=== PATIENT | female | born 1945 | race African-American/Black ===

== ENCOUNTER 2022-03-10 06:46 | Inpatient (IN) | payer MEDICARE, MEDICAID ==
[~2022-03-10] VITALS: Ht 170.2 cm; Wt 55.5 kg
[2022-03-10] MEDS ORDERED: IPRATROPIUM BROMIDE (0.02%) 0.5MG/2.5ML NEB HHN STA (06:53)
[2022-03-10] MEDS ORDERED: MAGNESIUM 2 G PREMIX 50 ML IV STA (06:53)
[2022-03-10] MEDS ORDERED: METHYLPREDNISOLONE SOD SUCC 125 MG/2 ML VIAL IV STA (06:53)
[2022-03-10] MEDS ORDERED: ALBUTEROL (0.083%) 2.5MG/3ML NEB HHN STA (06:53)
[2022-03-10 09:03] LABS: BG BASE EXCESS -8.5 mmol/L (-2.0-2.0); BG CARBOXYHEMOGLOBIN 0.9 % (0.5-1.5); BG DEOXYHEMOGLOBIN 0.8 % (0.0-5.0); BG FRACTION INSPIRED OXYGEN 100; BG HCO3 ACT 17.3 mmol/L (22.0-26.0); BG METHEMOGLOBIN 0.3 % (0.0-1.5); BG OXYGEN SATURATION 99.2 % (92.0-98.5); BG PCO2 36.7 mmHg (35.0-45.0); BG PO2 337.2 mmHg (75.0-100.0); BG SAMPLE SITE RIGHT BRACHIAL; BG TOTAL HEMOGLOBIN 12.6 g/dL (12.0-18.0); BG TOTAL RESPIRATORY RATE 33 b/min; BG VENT MODE MASK - BIPAP
[2022-03-10 09:08] LABS: BASOPHILS % 0.4 % (0.0-2.0); EOSINOPHILS % 0.3 % (0.0-5.0); HEMATOCRIT. 38.5 % (36.0-48.0); HEMOGLOBIN. 12.4 g/dL (12.0-16.0); LYMPHOCYTES % 9.2 % (20.0-50.0); MEAN CORPUSCULAR HEMOGLOBIN 30.2 pg (28.0-32.0); MEAN CORPUSCULAR VOLUME 93.6 fL (81.0-99.0); MEAN PLATELET VOLUME 10.6 fl (7.4-10.4); MONOCYTES % 3.8 % (2.0-8.0); NEUTROPHILS % 86.3 % (40.0-76.0); PLATELET 132 x1000/uL (130-400); RED BLOOD CELL COUNT 4.11 mill/uL (4.2-5.4); RED CELL DISTRIBUTION WIDTH 15.3 % (11.6-14.6)
[2022-03-10 09:15] LABS: CHLORIDE 104 mEq/L (98-107)
[2022-03-10] MEDS ORDERED: IPRATROPIUM/ALBUTEROL 0.5-3(2.5)MG/3ML NEB HHN PRN (09:30)
[2022-03-10] MEDS ORDERED: FUROSEMIDE 20MG/2ML VIAL IVP NR (10:00)
[2022-03-10 11:21] LABS: BG BASE EXCESS -3.8 mmol/L (-2.0-2.0); BG CARBOXYHEMOGLOBIN 1.1 % (0.5-1.5); BG DEOXYHEMOGLOBIN 0.8 % (0.0-5.0); BG FRACTION INSPIRED OXYGEN 50; BG HCO3 ACT 20.8 mmol/L (22.0-26.0); BG METHEMOGLOBIN 0.2 % (0.0-1.5); BG OXYGEN SATURATION 99.2 % (92.0-98.5); BG OXYHEMOGLOBIN 97.9 % (94.0-97.0); BG PCO2 36.4 mmHg (35.0-45.0); BG PH 7.375 (7.350-7.450); BG PO2 199.9 mmHg (75.0-100.0); BG SAMPLE SITE RIGHT BRACHIAL; BG TOTAL HEMOGLOBIN 13.4 g/dL (12.0-18.0); BG TOTAL RESPIRATORY RATE 20 b/min; BG VENT MODE MASK - BIPAP
[2022-03-10] MEDS ORDERED: IPRATROPIUM/ALBUTEROL 0.5-3(2.5)MG/3ML NEB HHN SCH (12:00)
[2022-03-10] MEDS ORDERED: ACETAMINOPHEN 325MG TABLET PO PRN ×2 (13:30)
[2022-03-10] MEDS ORDERED: IPRATROPIUM/ALBUTEROL 0.5-3(2.5)MG/3ML NEB NEB PRN (13:30)
[2022-03-10] MEDS ORDERED: GUAIFENESIN 200MG/10ML SUGAR FREE UDC PO PRN (13:30)
[2022-03-10] MEDS ORDERED: CLONIDINE 0.1MG TABLET PO PRN (13:30)
[2022-03-10] MEDS ORDERED: ONDANSETRON HCL 4MG/2ML INJ IV PRN (13:30)
[2022-03-10] MEDS ORDERED: MAGNESIUM/ALUMINUM HYDROXIDE/SIMETHICONE 30ML UDC PO PRN (13:30)
[2022-03-10] MEDS ORDERED: HYDROCODONE/ACETAMINOPHEN 5/325MG TABLET PO PRN (13:30)
[2022-03-10] MEDS ORDERED: NALOXONE HCL 0.4MG/ML VIAL IV PRN (14:00)
[2022-03-10 14:03] VITALS: BP 106/84
[2022-03-10] MEDS: METHYLPREDNISOLONE SOD SUCC 125 MG/2 ML VIAL IV SCH ×2 (14:21→21:06)
[2022-03-10] MEDS: ENOXAPARIN 40MG/0.4ML SYR SUBCUT SCH (14:22)
[2022-03-10] MEDS ORDERED: AZITHROMYCIN 500MG/250ML 250 ML IV ONE (15:00)
[2022-03-10] MEDS ORDERED: CEFTRIAXONE 1 G PREMIX 50 ML IV SCH (15:00)
[2022-03-10] MEDS ORDERED: DEXTROSE 50% WATER 50ML SYRINGE IV PRN ×2 (15:30→20:30)
[2022-03-10 16:00] VITALS: BP 110/69
[2022-03-10] MEDS ORDERED: AMLO-138 PO (16:18)
[2022-03-10] MEDS ORDERED: VILA40TA PO (16:18)
[2022-03-10] MEDS ORDERED: BISO10TA11 PO (16:18)
[2022-03-10] MEDS ORDERED: HYDR25TA PO (16:18)
[2022-03-10] MEDS: CEFTRIAXONE 1,000 MG in DEXTROSE 5% WATER 50 ML IV SCH (16:48)
[2022-03-10] MEDS: AZITHROMYCIN 500MG in DEXTROSE 5% WATER 250ML IV SCH (16:49)
[2022-03-10] MEDS ORDERED: BUDE6.9H INH (17:09)
[2022-03-10] MEDS ORDERED: ALBU4TAB6 MT (17:09)
[2022-03-10] MEDS: BLOOD SUGAR DIAGNOSTIC STRIP TEST SCH ×2 (17:33→20:18)
[2022-03-10 19:50] LABS: CREATINE KINASE MB FRACTION 3.2 ng/mL (0.5-3.6)
[2022-03-10 20:00] VITALS: BP 142/77
[2022-03-10] MEDS: IPRATROPIUM/ALBUTEROL 0.5-3(2.5)MG/3ML NEB NEB SCH (20:00)
[2022-03-10 20:51] LABS: CLARITY URINE CLEAR (CLEAR); COLOR URINE YELLOW (YELLOW); KETONES URINE 1+ (NEGATIVE); LEUKOCYTE ESTERASE URINE TRACE (NEGATIVE); NITRITE URINE NEGATIVE (NEGATIVE); OCCULT BLOOD URINE NEGATIVE (NEGATIVE); PH URINE 6.5 (4.5-8.0); PROTEIN URINE NEGATIVE (NEGATIVE); SPECIFIC GRAVITY URINE 1.011 (1.005-1.030)
[2022-03-11] VITALS: BP 157/75
[2022-03-11 04:00] VITALS: BP_SYST 124; BP_SYST 128; BP_DIAS 67; BP_DIAS 79
[2022-03-11] MEDS: BLOOD SUGAR DIAGNOSTIC STRIP TEST SCH ×4 (06:01→20:18)
[2022-03-11] MEDS: PANTOPRAZOLE 40MG DR TABLET PO SCH (06:09)
[2022-03-11] MEDS: INSULIN LISPRO 100 UNITS/ML SUBCUT SCH ×4 (06:15→20:18)
[2022-03-11 08:00] VITALS: BP 119/57
[2022-03-11] MEDS ORDERED: INFLUENZA VACCINE 05/PF 0.5 ML SYRINGE IM ONE (08:00)
[2022-03-11] MEDS ORDERED: PNEUMOCOCCAL 23-VAL P-SAC VAC 0.5 ML IM ONE (08:00)
[2022-03-11] MEDS: AMLODIPINE 10MG TABLET PO SCH (08:31)
[2022-03-11] MEDS: BISOPROLOL FUMARATE 5 MG TABLET PO SCH (08:31)
[2022-03-11] MEDS: HYDROCHLOROTHIAZIDE 25MG TABLET PO SCH (08:32)
[2022-03-11] MEDS: PREDNISONE 20MG TABLET PO SCH (08:32)
[2022-03-11] MEDS: BENAZEPRIL 10MG TABLET PO SCH (08:32)
[2022-03-11] MEDS ORDERED: VILAZODONE HYDROCHLORIDE 40 MG PO SCH (09:00)
[2022-03-11] MEDS ORDERED: BISOPROLOL FUMARATE 10 MG PO SCH (09:00)
[2022-03-11] MEDS ORDERED: MEDICATION NOT ON FORMULARY EA (Amlodipine Besylate/Benazepril (Amlodipine-Benazepril 10 PO SCH (09:00)
[2022-03-11] MEDS: IPRATROPIUM/ALBUTEROL 0.5-3(2.5)MG/3ML NEB NEB SCH ×3 (09:23→20:37)
[2022-03-11 10:18] VITALS: BP 145/71
[2022-03-11 12:25] LABS: CREATINE KINASE MB FRACTION 2.9 ng/mL (0.5-3.6)
[2022-03-11] MEDS: CEFTRIAXONE 1,000 MG in DEXTROSE 5% WATER 50 ML IV SCH (13:23)
[2022-03-11] MEDS: AZITHROMYCIN 500MG in DEXTROSE 5% WATER 250ML IV SCH (14:14)
[2022-03-11] MEDS: ENOXAPARIN 40MG/0.4ML SYR SUBCUT SCH (14:14)
[2022-03-11] MEDS: METRONIDAZOLE 500MG TABLET PO SCH ×2 (15:55→20:17)
[2022-03-11 20:00] VITALS: BP 122/48
[2022-03-11 20:43] LABS: HEMATOCRIT 33.4 % (36.0-48.0); HEMOGLOBIN 11.2 g/dL (12.0-16.0); MEAN CORPUSCULAR HEMOGLOBIN 30.5 pg (28.0-32.0); MEAN CORPUSCULAR VOLUME 91.1 fL (81.0-99.0); PLATELET 133 x1000/uL (130-400); RED BLOOD CELL COUNT 3.67 mill/uL (4.2-5.4); RED CELL DISTRIBUTION WIDTH 14.6 % (11.6-14.6)
[2022-03-11 20:51] LABS: CHLORIDE 109 mEq/L (98-107)
[2022-03-11] MEDS ORDERED: TRAZODONE HCL 50MG TABLET PO SCH (21:00)
[2022-03-12] VITALS: BP 124/80
[2022-03-12] MEDS: IPRATROPIUM/ALBUTEROL 0.5-3(2.5)MG/3ML NEB NEB SCH ×3 (01:38→15:06)
[2022-03-12 04:00] VITALS: BP 143/52
[2022-03-12] MEDS: PANTOPRAZOLE 40MG DR TABLET PO SCH (06:06)
[2022-03-12] MEDS: BLOOD SUGAR DIAGNOSTIC STRIP TEST SCH ×2 (06:12→11:40)
[2022-03-12] MEDS: INSULIN LISPRO 100 UNITS/ML SUBCUT SCH ×2 (06:12→12:10)
[2022-03-12 08:00] VITALS: BP 114/62
[2022-03-12] MEDS: BISOPROLOL FUMARATE 5 MG TABLET PO SCH (08:45)
[2022-03-12] MEDS: METRONIDAZOLE 500MG TABLET PO SCH (08:46)
[2022-03-12] MEDS: AMLODIPINE 10MG TABLET PO SCH (08:46)
[2022-03-12] MEDS: BENAZEPRIL 10MG TABLET PO SCH (08:46)
[2022-03-12] MEDS: PREDNISONE 20MG TABLET PO SCH (08:46)
[2022-03-12 11:41] LABS: BASOPHILS % 0.3 % (0.0-2.0); EOSINOPHILS % 0.2 % (0.0-5.0); HEMATOCRIT. 35.3 % (36.0-48.0); HEMOGLOBIN. 11.7 g/dL (12.0-16.0); LYMPHOCYTES % 26.6 % (20.0-50.0); MEAN CORPUSCULAR HEMOGLOBIN 30.4 pg (28.0-32.0); MEAN CORPUSCULAR VOLUME 91.8 fL (81.0-99.0); MEAN PLATELET VOLUME 10.3 fl (7.4-10.4); MONOCYTES % 5.9 % (2.0-8.0); PLATELET 129 x1000/uL (130-400); RED BLOOD CELL COUNT 3.85 mill/uL (4.2-5.4); RED CELL DISTRIBUTION WIDTH 14.9 % (11.6-14.6)
[2022-03-12] MEDS ORDERED: SENNOSIDES/DOCUSATE SOD 8.6/50MG TABLET PO PRN (12:15)
[2022-03-12] MEDS ORDERED: POLYETHYLENE GLYCOL 3350 (17GM) 1 DOSE PACK PO NR (12:15)
[2022-03-12] MEDS ORDERED: GUAIFENESIN 200MG/10ML SUGAR FREE UDC PO SCH (12:30)
[2022-03-12] MEDS: ENOXAPARIN 40MG/0.4ML SYR SUBCUT SCH (13:11)
[2022-03-12] MEDS: HYDROCHLOROTHIAZIDE 25MG TABLET PO SCH (13:11)
[2022-03-12] MEDS: CEFTRIAXONE 1,000 MG in DEXTROSE 5% WATER 50 ML IV SCH (13:11)
[2022-03-12] MEDS: AZITHROMYCIN 500MG in DEXTROSE 5% WATER 250ML IV SCH ×2 (13:12→13:40)
[2022-03-12 14:00] VITALS: BP 140/65
[2022-03-12] MEDS ORDERED: AZITHROMYCIN 500 MG TABLET PO SCH (14:00)
[2022-03-12 14:35] LABS: CHLORIDE 109 mEq/L (98-107)
[2022-03-12 14:41] LABS: PHOSPHORUS 2.5 mg/dL (2.5-4.9)
[2022-03-12] MEDS ORDERED: POTASSIUM CHLORIDE 20MEQ TABLET SR PO NR (15:30)
[2022-03-12] MEDS ORDERED: METR-167 PO ×3 (15:42→16:30)
[2022-03-12] MEDS ORDERED: AZIT250T12 PO ×3 (15:42→16:30)
[2022-03-12] MEDS ORDERED: P20 PO ×3 (15:42→16:30)
[2022-03-12] MEDS ORDERED: POLY119P2 MT ×3 (15:44→16:30)
[2022-03-12 16:39] VITALS: BP 120/70
[2022-03-12 17:53] LABS: PROTHROMBIN TIME 11.2 sec (9.6-11.0)
[2022-03-12 18:21] LABS: HEPATITIS B SURFACE ANTIGEN NEGATIVE
== END 2022-03-12 17:30 | disposition home or self-care (01) | DRG 189 ==
LOC: ER 07:04 → 7EST 12:25 → EDBEDREQ 12:31 → EDBEDREQTM 12:31 → EDBEDREQSVC 12:31 → SUPCPDRO 12:52 → ENRESERV 13:07
PROVIDERS: ADMIT Internal Medicine; ATTEND Internal Medicine
PROC: 5A09357 Assistance with Respiratory Ventilation, Less than 24 Consecutive Hours, Continuous Positive Airway Pressure (ICD-10-PCS; principal; 2022-03-11)
DX: J96.01 Acute respiratory failure with hypoxia (principal); J44.1 Chronic obstructive pulmonary disease with (acute) exacerbation; E87.20 Acidosis, unspecified; J84.9 Interstitial pulmonary disease, unspecified; A59.00 Urogenital trichomoniasis, unspecified; A59.01 Trichomonal vulvovaginitis; R73.03 Prediabetes; E87.70 Fluid overload, unspecified; Z20.822 Contact with and (suspected) exposure to COVID-19; E78.5 Hyperlipidemia, unspecified; F32.A Depression, unspecified; K58.0 Irritable bowel syndrome with diarrhea; F17.210 Nicotine dependence, cigarettes, uncomplicated; I10 Essential (primary) hypertension; K80.20 Calculus of gallbladder without cholecystitis without obstruction; Z79.51 Long term (current) use of inhaled steroids; Z79.899 Other long term (current) drug therapy; Z85.72 Personal history of non-Hodgkin lymphomas
CPT/HCPCS: 36415; 36600; 71045; 76700; 76775; 80048; 80053; 80061; 81003; 82375; 82550; 82553; 82805; 82962; 83036; 83735; 83880; 84100; 84145; 84484; 85025; 85027; 86705; 86709; 86803; 87340; 87426; 87804; 90686; 93005; 93306; 94660; 99291; J0456; J0696; J1650; J1940; J2930; J3475; J7060; J7512

== ENCOUNTER 2022-05-14 16:08 | Inpatient (IN) | payer MEDICARE, MEDICAID ==
[~2022-05-14] VITALS: Ht 157.5 cm; Wt 54.4 kg
[~2022-05-14 16:08] MED LIST: ALBU4TAB6 MT; AMLO-138 PO; AZIT250T12 PO; BISO10TA11 PO; BUDE6.9H INH; HYDR25TA PO; METR-167 PO; P20 PO; POLY119P2 MT; VILA40TA PO
[2022-05-14] MEDS ORDERED: IPRATROPIUM BROMIDE (0.02%) 0.5MG/2.5ML NEB HHN STA (16:41)
[2022-05-14] MEDS ORDERED: METHYLPREDNISOLONE SOD SUCC 125 MG/2 ML VIAL IV STA (16:41)
[2022-05-14] MEDS ORDERED: ALBUTEROL (0.083%) 2.5MG/3ML NEB HHN STA (16:41)
[2022-05-14 17:20] LABS: BASOPHILS % 0.7 % (0.0-2.0); EOSINOPHILS % 0.8 % (0.0-5.0); HEMATOCRIT. 38.6 % (36.0-48.0); HEMOGLOBIN. 12.7 g/dL (12.0-16.0); LYMPHOCYTES % 19.2 % (20.0-50.0); MEAN CORPUSCULAR HEMOGLOBIN 30.1 pg (28.0-32.0); MEAN CORPUSCULAR VOLUME 91.5 fL (81.0-99.0); MEAN PLATELET VOLUME 9.9 fl (7.4-10.4); MONOCYTES % 8.1 % (2.0-8.0); NEUTROPHILS % 71.2 % (40.0-76.0); PLATELET 120 x1000/uL (130-400); RED BLOOD CELL COUNT 4.22 mill/uL (4.2-5.4); RED CELL DISTRIBUTION WIDTH 14.9 % (11.6-14.6)
[2022-05-14 17:27] LABS: CHLORIDE 107 mEq/L (98-107)
[2022-05-14 19:38] VITALS: BP 152/54
[2022-05-14 20:00] VITALS: BP 152/54
[2022-05-14] MEDS ORDERED: GUAIFENESIN 200MG/10ML SUGAR FREE UDC PO PRN (21:30)
[2022-05-14] MEDS ORDERED: MAGNESIUM/ALUMINUM HYDROXIDE/SIMETHICONE 30ML UDC PO PRN (21:30)
[2022-05-14] MEDS ORDERED: ACETAMINOPHEN 325MG TABLET PO PRN ×2 (21:30)
[2022-05-14] MEDS ORDERED: CLONIDINE 0.1MG TABLET PO PRN (21:30)
[2022-05-14] MEDS ORDERED: ONDANSETRON HCL 4MG/2ML INJ IV PRN (21:30)
[2022-05-14] MEDS ORDERED: IPRATROPIUM/ALBUTEROL 0.5-3(2.5)MG/3ML NEB HHN SCH (21:30)
[2022-05-14] MEDS ORDERED: DOCUSATE SODIUM 100MG CAPSULE PO PRN (21:30)
[2022-05-14] MEDS ORDERED: ENOXAPARIN 40MG/0.4ML SYR SUBCUT SCH (22:00)
[2022-05-15] VITALS: BP 123/60
[2022-05-15] MEDS: ALBUTEROL (0.083%) 2.5MG/3ML NEB HHN SCH ×6 (00:16→20:05)
[2022-05-15] MEDS: IPRATROPIUM BROMIDE (0.02%) 0.5MG/2.5ML NEB HHN SCH ×6 (00:16→20:05)
[2022-05-15 04:00] VITALS: BP 141/58
[2022-05-15] MEDS: METHYLPREDNISOLONE SOD SUCC 40 MG/ML VIAL IV SCH ×3 (05:09→21:38)
[2022-05-15 06:41] LABS: BASOPHILS % 0.2 % (0.0-2.0); HEMATOCRIT. 35.5 % (36.0-48.0); MEAN CORPUSCULAR HEMOGLOBIN 30.4 pg (28.0-32.0); MEAN CORPUSCULAR VOLUME 90.1 fL (81.0-99.0); MONOCYTES % 3.1 % (2.0-8.0); NEUTROPHILS % 85.7 % (40.0-76.0); PLATELET 111 x1000/uL (130-400); RED BLOOD CELL COUNT 3.94 mill/uL (4.2-5.4); RED CELL DISTRIBUTION WIDTH 14.4 % (11.6-14.6)
[2022-05-15 07:39] LABS: CHLORIDE 108 mEq/L (98-107)
[2022-05-15] MEDS ORDERED: AZITHROMYCIN 500MG/250ML 250 ML IV SCH (07:45)
[2022-05-15 07:58] LABS: HDL CHOLESTEROL 81 mg/dL (40-59); LDL CHOLESTEROL 65 mg/dL (5-100); T4 FREE 1.31 ng/dL (0.76-1.46)
[2022-05-15] MEDS ORDERED: FUROSEMIDE 40MG/4ML VIAL IVP NR (07:59)
[2022-05-15 08:00] VITALS: BP 152/79
[2022-05-15] MEDS: PANTOPRAZOLE SODIUM 40 MG/VIAL IV SCH (08:43)
[2022-05-15] MEDS: AMLODIPINE 10MG TABLET PO SCH (08:44)
[2022-05-15] MEDS: BENAZEPRIL 10MG TABLET PO SCH (08:44)
[2022-05-15] MEDS: HYDROCHLOROTHIAZIDE 25MG TABLET PO SCH (08:44)
[2022-05-15] MEDS ORDERED: GUAIFENESIN 200MG/10ML SUGAR FREE UDC PO PRN (08:45)
[2022-05-15] MEDS ORDERED: MEDICATION NOT ON FORMULARY EA (Amlodipine Besylate/Benazepril (Amlodipine-Benazepril 10 PO SCH (09:00)
[2022-05-15] MEDS ORDERED: VILAZODONE HYDROCHLORIDE 40 MG PO SCH (09:00)
[2022-05-15] MEDS: AZITHROMYCIN 500MG in DEXTROSE 5% WATER 250ML IV SCH (09:25)
[2022-05-15] MEDS ORDERED: NITROGLYCERIN 0.4MG TABLET SL SL PRN (09:30)
[2022-05-15] MEDS ORDERED: DEXTROSE 50% WATER 50ML SYRINGE IV PRN (09:45)
[2022-05-15] MEDS: BLOOD SUGAR DIAGNOSTIC STRIP TEST SCH ×3 (11:18→21:40)
[2022-05-15] MEDS: ASPIRIN 81MG TABLET PO SCH (11:18)
[2022-05-15 12:00] VITALS: BP 136/56
[2022-05-15] MEDS: INSULIN LISPRO 100 UNITS/ML SUBCUT SCH ×3 (13:59→21:36)
[2022-05-15 16:00] VITALS: BP 120/66
[2022-05-15 20:00] VITALS: BP 128/69
[2022-05-15] MEDS ORDERED: BISOPROLOL FUMARATE 10 MG PO SCH (21:00)
[2022-05-15] MEDS: ATORVASTATIN CALCIUM 10MG TABLET PO SCH (21:27)
[2022-05-15] MEDS: BISOPROLOL FUMARATE 5 MG TABLET PO SCH (21:28)
[2022-05-16] VITALS: BP 130/61
[2022-05-16] MEDS: ALBUTEROL (0.083%) 2.5MG/3ML NEB HHN SCH ×6 (00:26→20:35)
[2022-05-16] MEDS: IPRATROPIUM BROMIDE (0.02%) 0.5MG/2.5ML NEB HHN SCH ×6 (00:26→20:36)
[2022-05-16 04:00] VITALS: BP 145/81
[2022-05-16] MEDS: METHYLPREDNISOLONE SOD SUCC 40 MG/ML VIAL IV SCH ×3 (05:07→21:14)
[2022-05-16] MEDS: INSULIN LISPRO 100 UNITS/ML SUBCUT SCH ×4 (07:10→20:59)
[2022-05-16] MEDS: BLOOD SUGAR DIAGNOSTIC STRIP TEST SCH ×4 (07:10→21:00)
[2022-05-16 08:00] VITALS: BP 140/67
[2022-05-16] MEDS: AMLODIPINE 10MG TABLET PO SCH (08:11)
[2022-05-16] MEDS: BENAZEPRIL 10MG TABLET PO SCH (08:11)
[2022-05-16] MEDS: ASPIRIN 81MG TABLET PO SCH (08:11)
[2022-05-16] MEDS: HYDROCHLOROTHIAZIDE 25MG TABLET PO SCH (08:11)
[2022-05-16] MEDS: AZITHROMYCIN 500MG in DEXTROSE 5% WATER 250ML IV SCH (08:12)
[2022-05-16] MEDS: PANTOPRAZOLE SODIUM 40 MG/VIAL IV SCH (08:12)
[2022-05-16 12:00] VITALS: BP 114/58
[2022-05-16 16:00] VITALS: BP 122/53
[2022-05-16 20:00] VITALS: BP 121/50
[2022-05-16] MEDS: ATORVASTATIN CALCIUM 10MG TABLET PO SCH (20:58)
[2022-05-16] MEDS: BISOPROLOL FUMARATE 5 MG TABLET PO SCH (21:14)
[2022-05-17] VITALS: BP 131/66
[2022-05-17] MEDS: IPRATROPIUM BROMIDE (0.02%) 0.5MG/2.5ML NEB HHN SCH ×7 (00:30→21:05)
[2022-05-17] MEDS: ALBUTEROL (0.083%) 2.5MG/3ML NEB HHN SCH ×7 (00:30→21:05)
[2022-05-17 04:00] VITALS: BP 137/68
[2022-05-17] MEDS: METHYLPREDNISOLONE SOD SUCC 40 MG/ML VIAL IV SCH ×2 (05:36→08:11)
[2022-05-17 05:55] LABS: HEMATOCRIT 36.1 % (36.0-48.0); HEMOGLOBIN 11.9 g/dL (12.0-16.0); MEAN CORPUSCULAR HEMOGLOBIN 30.2 pg (28.0-32.0); MEAN CORPUSCULAR VOLUME 91.9 fL (81.0-99.0); PLATELET 130 x1000/uL (130-400); RED BLOOD CELL COUNT 3.93 mill/uL (4.2-5.4); RED CELL DISTRIBUTION WIDTH 15.1 % (11.6-14.6)
[2022-05-17] MEDS: INSULIN LISPRO 100 UNITS/ML SUBCUT SCH ×4 (06:24→20:26)
[2022-05-17] MEDS: BLOOD SUGAR DIAGNOSTIC STRIP TEST SCH ×4 (06:24→20:26)
[2022-05-17 07:21] LABS: CHLORIDE 104 mEq/L (98-107)
[2022-05-17 07:25] LABS: PHOSPHORUS 3.1 mg/dL (2.5-4.9)
[2022-05-17 08:00] VITALS: BP 129/71
[2022-05-17] MEDS: PANTOPRAZOLE SODIUM 40 MG/VIAL IV SCH (08:07)
[2022-05-17] MEDS: AZITHROMYCIN 500 MG TABLET PO SCH (08:08)
[2022-05-17] MEDS: ASPIRIN 81MG TABLET PO SCH (08:08)
[2022-05-17] MEDS: HYDROCHLOROTHIAZIDE 25MG TABLET PO SCH (08:09)
[2022-05-17] MEDS: BENAZEPRIL 10MG TABLET PO SCH (08:09)
[2022-05-17] MEDS: AMLODIPINE 10MG TABLET PO SCH (08:09)
[2022-05-17 12:00] VITALS: BP 126/58
[2022-05-17 16:00] VITALS: BP 123/60
[2022-05-17] MEDS ORDERED: METOPROLOL TARTRATE 25MG TABLET PO SCH (18:45)
[2022-05-17 20:00] VITALS: BP 118/55
[2022-05-17] MEDS: METOPROLOL TARTRATE 25MG TABLET PO SCH (20:25)
[2022-05-17] MEDS: ATORVASTATIN CALCIUM 10MG TABLET PO SCH (20:26)
[2022-05-18] VITALS: BP 115/68
[2022-05-18 04:00] VITALS: BP 141/79
[2022-05-18] MEDS: ALBUTEROL (0.083%) 2.5MG/3ML NEB HHN SCH ×5 (05:22→20:55)
[2022-05-18] MEDS: IPRATROPIUM BROMIDE (0.02%) 0.5MG/2.5ML NEB HHN SCH ×5 (05:22→20:55)
[2022-05-18 06:24] LABS: BASOPHILS % 0.1 % (0.0-2.0); HEMATOCRIT. 34.5 % (36.0-48.0); HEMOGLOBIN. 11.8 g/dL (12.0-16.0); MEAN CORPUSCULAR HEMOGLOBIN 30.8 pg (28.0-32.0); MEAN CORPUSCULAR VOLUME 90.3 fL (81.0-99.0); NEUTROPHILS % 82.9 % (40.0-76.0); PLATELET 130 x1000/uL (130-400); RED BLOOD CELL COUNT 3.83 mill/uL (4.2-5.4); RED CELL DISTRIBUTION WIDTH 14.5 % (11.6-14.6)
[2022-05-18] MEDS: INSULIN LISPRO 100 UNITS/ML SUBCUT SCH ×4 (06:27→20:16)
[2022-05-18] MEDS: BLOOD SUGAR DIAGNOSTIC STRIP TEST SCH ×4 (06:27→20:16)
[2022-05-18 08:00] VITALS: BP 125/71
[2022-05-18] MEDS: BENAZEPRIL 10MG TABLET PO SCH (08:56)
[2022-05-18] MEDS: AMLODIPINE 10MG TABLET PO SCH (08:58)
[2022-05-18] MEDS: AZITHROMYCIN 500 MG TABLET PO SCH (08:59)
[2022-05-18] MEDS: METOPROLOL TARTRATE 25MG TABLET PO SCH ×2 (08:59→20:16)
[2022-05-18] MEDS: ASPIRIN 81MG TABLET PO SCH (08:59)
[2022-05-18] MEDS: HYDROCHLOROTHIAZIDE 25MG TABLET PO SCH (09:00)
[2022-05-18] MEDS: PANTOPRAZOLE SODIUM 40 MG/VIAL IV SCH (09:01)
[2022-05-18] MEDS: METHYLPREDNISOLONE SOD SUCC 40 MG/ML VIAL IV SCH (09:01)
[2022-05-18 12:00] VITALS: BP 135/49
[2022-05-18] MEDS ORDERED: METOPROLOL SUCCINATE 50MG ER TABLET PO ONE (12:00)
[2022-05-18] MEDS: ENOXAPARIN 40MG/0.4ML SYR SUBCUT SCH (12:30)
[2022-05-18] MEDS ORDERED: METOPROLOL TARTRATE 25MG TABLET PO SCH (12:45)
[2022-05-18 13:58] LABS: CHLORIDE 104 mEq/L (98-107)
[2022-05-18] MEDS ORDERED: METOPROLOL TARTRATE 25MG TABLET PO ONE (14:15)
[2022-05-18] MEDS ORDERED: METOPROLOL TARTRATE 25MG TABLET PO NR (15:00)
[2022-05-18 16:00] VITALS: BP 117/51
[2022-05-18 20:00] VITALS: BP 112/44
[2022-05-18] MEDS: ATORVASTATIN CALCIUM 10MG TABLET PO SCH (20:23)
[2022-05-19] VITALS: BP 133/57
[2022-05-19] MEDS: ALBUTEROL (0.083%) 2.5MG/3ML NEB HHN SCH ×3 (00:53→10:30)
[2022-05-19] MEDS: IPRATROPIUM BROMIDE (0.02%) 0.5MG/2.5ML NEB HHN SCH ×3 (00:54→10:30)
[2022-05-19 04:00] VITALS: BP 130/67
[2022-05-19] MEDS: BLOOD SUGAR DIAGNOSTIC STRIP TEST SCH ×2 (06:23→12:19)
[2022-05-19] MEDS: INSULIN LISPRO 100 UNITS/ML SUBCUT SCH ×2 (06:24→12:19)
[2022-05-19 07:22] LABS: BASOPHILS % 0.1 % (0.0-2.0); EOSINOPHILS % 0.1 % (0.0-5.0); HEMATOCRIT. 36.6 % (36.0-48.0); HEMOGLOBIN. 12.2 g/dL (12.0-16.0); LYMPHOCYTES % 18.8 % (20.0-50.0); MEAN CORPUSCULAR HEMOGLOBIN 30.2 pg (28.0-32.0); MEAN CORPUSCULAR VOLUME 90.5 fL (81.0-99.0); MONOCYTES % 7.1 % (2.0-8.0); NEUTROPHILS % 73.9 % (40.0-76.0); PLATELET 132 x1000/uL (130-400); RED BLOOD CELL COUNT 4.04 mill/uL (4.2-5.4); RED CELL DISTRIBUTION WIDTH 14.1 % (11.6-14.6)
[2022-05-19 08:00] VITALS: BP 136/73
[2022-05-19] MEDS: ASPIRIN 81MG TABLET PO SCH (08:53)
[2022-05-19] MEDS: ENOXAPARIN 40MG/0.4ML SYR SUBCUT SCH (08:53)
[2022-05-19] MEDS: AZITHROMYCIN 500 MG TABLET PO SCH (08:54)
[2022-05-19] MEDS: AMLODIPINE 10MG TABLET PO SCH (08:54)
[2022-05-19] MEDS: HYDROCHLOROTHIAZIDE 25MG TABLET PO SCH (08:54)
[2022-05-19] MEDS: METOPROLOL TARTRATE 25MG TABLET PO SCH (08:54)
[2022-05-19] MEDS ORDERED: PREDNISONE 20MG TABLET PO SCH (09:00)
[2022-05-19] MEDS ORDERED: FAMOTIDINE 20MG TABLET PO SCH (09:00)
[2022-05-19] MEDS ORDERED: METOPROLOL TARTRATE 5MG/5ML VIAL IV NR (09:15)
[2022-05-19 09:31] LABS: CHLORIDE 104 mEq/L (98-107)
[2022-05-19] MEDS ORDERED: IOHEXOL-350 100 ML BOTTLE ONE (09:59)
[2022-05-19] MEDS ORDERED: NITROGLYCERIN SPRAY/4.9GM CAN TL SCH (10:30)
[2022-05-19 12:00] VITALS: BP 135/49
[2022-05-19] MEDS ORDERED: P20 PO (14:54)
[2022-05-19 15:07] VITALS: BP 125/58
[2022-05-19 16:00] VITALS: BP 139/66
== END 2022-05-19 17:00 | disposition home or self-care (01) | DRG 205 ==
LOC: ER 16:31 → 8WST 18:06 → EDBEDREQ 18:09 → EDBEDREQTM 18:09 → ENRESERV 18:33
PROVIDERS: ADMIT Internal Medicine; ATTEND Internal Medicine
DX: M94.0 Chondrocostal junction syndrome [Tietze] (principal); I50.23 Acute on chronic systolic (congestive) heart failure; J96.01 Acute respiratory failure with hypoxia; J44.1 Chronic obstructive pulmonary disease with (acute) exacerbation; I11.0 Hypertensive heart disease with heart failure; E78.5 Hyperlipidemia, unspecified; D69.6 Thrombocytopenia, unspecified; Z66 Do not resuscitate; Z20.822 Contact with and (suspected) exposure to COVID-19; Z87.891 Personal history of nicotine dependence; Z85.72 Personal history of non-Hodgkin lymphomas; R73.9 Hyperglycemia, unspecified; E80.6 Other disorders of bilirubin metabolism; Z79.899 Other long term (current) drug therapy; Z79.51 Long term (current) use of inhaled steroids
CPT/HCPCS: 36415; 71045; 75571; 80048; 80053; 80061; 82248; 82962; 83036; 83735; 83880; 84100; 84439; 84443; 84484; 85025; 85027; 85379; 87426; 87804; 93005; 93306; 94640; 97116; 97162; 99285; C9113; J0456; J1650; J1815; J1940; J2920; J2930; J3490; J7060; J7512; Q9967

== ENCOUNTER 2023-12-14 06:12 | Inpatient (IN) | payer MEDICARE, MEDICAID ==
[~2023-12-14] VITALS: Ht 157.5 cm; Wt 42.3 kg
[~2023-12-14 06:12] MED LIST changes: -AMLO-138 PO; +ASPI-1406 PO; -AZIT250T12 PO; -BISO10TA11 PO; +COR3 PO; -HYDR25TA PO; +LIP40 PO; +LISI20TA31 PO; +MECL-299 MT; -METR-167 PO; -P20 PO; +SPIR25TA PO
[2023-12-14] MEDS: METHYLPREDNISOLONE SOD SUCC 125MG/2ML (ACT-O-VIAL) IV ONE (06:22)
[2023-12-14] MEDS: FAMOTIDINE 20MG/2ML VIAL IV ONE (06:22)
[2023-12-14 06:32] LABS: CHLORIDE 108 mEq/L (98-107); POTASSIUM 3.9 mEq/L (3.5-5.1); SODIUM 140 mEq/L (136-145)
[2023-12-14 06:33] LABS: BASOPHILS % 1.5 % (0.0-2.0); CARBON DIOXIDE 27 mEq/L (21-32); EOSINOPHILS % 2.1 % (0.0-5.0); HEMATOCRIT. 36.4 % (36.0-48.0); HEMOGLOBIN. 12.2 g/dL (12.0-16.0); LYMPHOCYTES % 40.4 % (20.0-50.0); MEAN CORPUSCULAR HEMOGLOBIN 30.6 pg (28.0-32.0); MEAN CORPUSCULAR HGB CONC 33.5 g/dL (31.0-37.0); MEAN CORPUSCULAR VOLUME 91.5 fL (81.0-99.0); MEAN PLATELET VOLUME 8.9 fl (7.4-10.4); MONOCYTES % 9.1 % (2.0-8.0); NEUTROPHILS % 46.9 % (40.0-76.0); PLATELET 133 x1000/uL (130-400); RED BLOOD CELL COUNT 3.98 mill/uL (4.2-5.4); WHITE BLOOD COUNT 4.3 x1000/uL (4.5-11.0)
[2023-12-14 06:34] LABS: CALCIUM 10.3 mg/dL (8.7-10.4)
[2023-12-14 06:39] LABS: GLUCOSE 90 mg/dL (70-105); UREA NITROGEN BLOOD 18 mg/dL (9-23)
[2023-12-14] MEDS ORDERED: IPRATROPIUM/ALBUTEROL 0.5-3(2.5)MG/3ML NEB HHN PRN (08:45)
[2023-12-14] MEDS ORDERED: ONDANSETRON HCL 4MG/2ML INJ IV PRN (08:45)
[2023-12-14] MEDS ORDERED: DOCUSATE SODIUM 100MG CAPSULE PO PRN (08:45)
[2023-12-14] MEDS ORDERED: ACETAMINOPHEN 325MG TABLET PO PRN ×2 (08:45)
[2023-12-14] MEDS ORDERED: GUAIFENESIN 200MG/10ML SUGAR FREE UDC PO PRN (08:45)
[2023-12-14] MEDS ORDERED: MAGNESIUM/ALUMINUM HYDROXIDE/SIMETHICONE 30ML UDC PO PRN (08:45)
[2023-12-14] MEDS: ENOXAPARIN 40MG/0.4ML SYR SUBCUT SCH (09:00)
[2023-12-14] MEDS: METHYLPREDNISOLONE SOD SUCC 125MG/2ML (ACT-O-VIAL) IV SCH (09:36)
[2023-12-14] MEDS: DIPHENHYDRAMINE 50MG/ML VIAL IV PRN (12:35)
[2023-12-14] MEDS ORDERED: DAPA10TA PO (13:14)
[2023-12-14] MEDS ORDERED: FURO20TA4 PO (13:14)
[2023-12-14] MEDS: FUROSEMIDE 20MG TABLET PO SCH (14:11)
[2023-12-14 21:00] VITALS: BP_SYST 139; BP_SYST 157; BP_DIAS 78; BP_DIAS 86; PULSE 61; PULSE 78; RESP 14; RESP 17; TEMP 36.55848; TEMP 36.5848; O2SAT 100
[2023-12-14 22:00] VITALS: BP 156/59; PULSE 62; RESP 16; O2SAT 99
[2023-12-14] MEDS: FAMOTIDINE 20MG/2ML VIAL IV SCH (22:49)
[2023-12-14] MEDS: CARVEDILOL 6.25 MG TABLET PO SCH (22:49)
[2023-12-14] MEDS: ATORVASTATIN CALCIUM 40MG TABLET PO SCH (22:49)
[2023-12-15] VITALS (12 sets, daily range): BP systolic 128–173; BP diastolic 49–111; PULSE 60–72; RESP 15–22; TEMP 36.22512–36.50292; O2SAT 98–100
[2023-12-15 06:07] LABS: POTASSIUM 4.2 mEq/L (3.5-5.1)
[2023-12-15 06:08] LABS: CALCIUM 9.9 mg/dL (8.7-10.4)
[2023-12-15 06:13] LABS: CREATININE 1.2 mg/dL (0.6-1.0)
[2023-12-15 06:18] LABS: T4 FREE 0.92 ng/dL (0.89-1.76)
[2023-12-15 06:19] LABS: BASOPHILS % 0.3 % (0.0-2.0); HEMATOCRIT. 35.6 % (36.0-48.0); LYMPHOCYTES % 10.2 % (20.0-50.0); MEAN CORPUSCULAR HEMOGLOBIN 31.1 pg (28.0-32.0); MEAN CORPUSCULAR HGB CONC 33.8 g/dL (31.0-37.0); MEAN CORPUSCULAR VOLUME 91.8 fL (81.0-99.0); MEAN PLATELET VOLUME 9.6 fl (7.4-10.4); MONOCYTES % 3.3 % (2.0-8.0); NEUTROPHILS % 86.2 % (40.0-76.0); PLATELET 128 x1000/uL (130-400); RED BLOOD CELL COUNT 3.87 mill/uL (4.2-5.4); RED CELL DISTRIBUTION WIDTH 14.9 % (11.6-14.6); THYROID STIMULATING HORMONE 0.21 uIU/mL (0.55-4.78); WHITE BLOOD COUNT 7.1 x1000/uL (4.5-11.0)
[2023-12-15] MEDS: ASPIRIN 81MG EC TABLET PO SCH (09:05)
[2023-12-15] MEDS: SPIRONOLACTONE 25MG TABLET PO SCH (09:09)
[2023-12-15] MEDS: AMLODIPINE 5MG TABLET PO SCH (18:58)
[2023-12-15] MEDS: METHYLPREDNISOLONE SOD SUCC 125MG/2ML (ACT-O-VIAL) IV SCH (20:23)
[2023-12-15] MEDS: CLONIDINE 0.1MG TABLET PO PRN (22:17)
[2023-12-16] VITALS (9 sets, daily range): BP systolic 114–163; BP diastolic 50–72; PULSE 64–73; RESP 13–19; TEMP 36.61404–36.78072; O2SAT 97–100
[2023-12-16 06:57] LABS: HEMATOCRIT 39.1 % (36.0-48.0); MEAN CORPUSCULAR HEMOGLOBIN 30.3 pg (28.0-32.0); MEAN CORPUSCULAR HGB CONC 33.1 g/dL (31.0-37.0); MEAN CORPUSCULAR VOLUME 91.4 fL (81.0-99.0); PLATELET 135 x1000/uL (130-400); RED BLOOD CELL COUNT 4.28 mill/uL (4.2-5.4); RED CELL DISTRIBUTION WIDTH 15.3 % (11.6-14.6)
[2023-12-16 06:58] LABS: CARBON DIOXIDE 23 mEq/L (21-32); CHLORIDE 108 mEq/L (98-107); POTASSIUM 4.5 mEq/L (3.5-5.1); SODIUM 139 mEq/L (136-145)
[2023-12-16 06:59] LABS: CALCIUM 9.9 mg/dL (8.7-10.4)
[2023-12-16 07:04] LABS: GLUCOSE 155 mg/dL (70-105); UREA NITROGEN BLOOD 26 mg/dL (9-23)
[2023-12-16] MEDS ORDERED: DEXTROSE 50% WATER 50ML SYRINGE IV PRN (08:15)
[2023-12-16] MEDS: FAMOTIDINE 20MG/2ML VIAL IV SCH (08:57)
[2023-12-16] MEDS: ENOXAPARIN 30MG/0.3ML SYR SUBCUT SCH (08:59)
[2023-12-16] MEDS ORDERED: AMLO5TAB88 PO (11:00)
[2023-12-16] MEDS: AMLODIPINE 5MG TABLET PO NR (12:04)
[2023-12-16] MEDS: INSULIN LISPRO 100 UNITS/ML SUBCUT SCH (13:00)
[2023-12-16] MEDS: BLOOD SUGAR DIAGNOSTIC STRIP TEST SCH (13:20)
== END 2023-12-16 14:30 | disposition home or self-care (01) | DRG 916 ==
LOC: ER 06:12 → 5EST 06:30
PROVIDERS: ADMIT Internal Medicine; ATTEND Internal Medicine
DX: T78.3XXA Angioneurotic edema, initial encounter (principal); T46.4X5A Adverse effect of angiotensin-converting-enzyme inhibitors, initial encounter; J44.9 Chronic obstructive pulmonary disease, unspecified; E78.5 Hyperlipidemia, unspecified; I48.91 Unspecified atrial fibrillation; I11.0 Hypertensive heart disease with heart failure; F32.A Depression, unspecified; F17.210 Nicotine dependence, cigarettes, uncomplicated; I50.9 Heart failure, unspecified; Z85.72 Personal history of non-Hodgkin lymphomas; Z95.810 Presence of automatic (implantable) cardiac defibrillator; Z71.6 Tobacco abuse counseling; Y92.89 Other specified places as the place of occurrence of the external cause
CPT/HCPCS: 36415; 71045; 80048; 80061; 82040; 82962; 83036; 83880; 84439; 84443; 85025; 85027; 93005; 99291; C1893; J1200; J1650; J2919; J3490